=== PATIENT | female | born 1935 | race Caucasian/White ===

== ENCOUNTER 2016-07-09 10:30 | Outpatient (CLI) | payer MEDICARE, OTHER | END 2016-07-09 10:31 | disposition home or self-care (01) | DX: E87.1 Hypo-osmolality and hyponatremia (principal); E78.5 Hyperlipidemia, unspecified; I10 Essential (primary) hypertension ==

== ENCOUNTER 2017-03-12 12:34 | Outpatient (CLI) | payer MEDICARE, OTHER ==
[2017-03-12 18:16] LABS: ALBUMIN/GLOBULIN RATIO 1.6 (1.0-2.2); BILIRUBIN,TOTAL 0.6 mg/dL (0.2-1.0); CALCIUM 9.7 mg/dL (8.5-10.3); CREATININE 0.6 mg/dL (0.4-1.0); POTASSIUM 4.6 mmol/L (3.5-5.0)
== END 2017-03-12 12:35 | disposition home or self-care (01) ==
LOC: LAB.F 12:34
PROVIDERS: ATTEND Internal Medicine Cardiovascular Disease
DX: E78.2 Mixed hyperlipidemia (principal); I25.10 Atherosclerotic heart disease of native coronary artery without angina pectoris; Z79.899 Other long term (current) drug therapy
CPT/HCPCS: 36415; 80053

== ENCOUNTER 2017-04-28 11:44 | Outpatient (CLI) | payer MEDICARE, OTHER ==
[2017-04-28 19:44] LABS: CHOL/HDL RATIO 1.6 (<4.4); CHOLESTEROL 176 mg/dL; HDL CHOLESTEROL 107 mg/dL; LDL/HDL RATIO 0.5 (<4.4); TRIGLYCERIDES 65 mg/dL; VLDL CHOLESTEROL 13 mg/dL
== END 2017-04-28 11:45 | disposition home or self-care (01) ==
LOC: LAB.F 11:44
PROVIDERS: ATTEND Internal Medicine Cardiovascular Disease
DX: E78.2 Mixed hyperlipidemia (principal); I25.10 Atherosclerotic heart disease of native coronary artery without angina pectoris; Z79.899 Other long term (current) drug therapy
CPT/HCPCS: 36415; 80061

== ENCOUNTER 2018-01-24 10:43 | Outpatient (CLI) | payer MEDICARE, OTHER ==
--- NOTE | 2018-01-26 09:09 | Mammography Report ---
Reason: SCREENING MAMMO Procedure Date: 01/24/2018 Accession Number: [id number] / [id number] Procedure: MGS - Screening Mammo Dig Bilat CPT Code: FULL RESULT: EXAM: Screening Mammo Dig Bilat DATE: 01/24/2018 12:00 AM CLINICAL HISTORY: Screening mammogram TECHNIQUE: Bilateral CC and MLO views were obtained. COMPARISON: Mammogram 05/07/2014 FINDINGS: The breast parenchyma is heterogeneously dense which may limit the sensitivity of mammography. There are benign-appearing calcifications and lymph nodes. No suspicious masses, clustered microcalcifications, or regions of architectural distortion are identified. IMPRESSION: Benign findings RECOMMENDATION: Routine annual screening unless otherwise clinically indicated. BIRADS CATEGORY 2: Benign findings STANDARD QUALIFYING STATEMENTS: 1. This examination was reviewed with the aid of Computer-Aided Detection (CAD). 2. A negative or benign imaging report should not delay biopsy if clinically suspicious findings are present. Consider surgical consultation if warrented. More than 5% of cancers are not identified by imaging. 3. Dense breasts may obscure an underlying neoplasm.
== END 2018-01-24 10:44 | disposition home or self-care (01) ==
LOC: DI.S 10:43
PROVIDERS: ATTEND Internal Medicine
DX: Z12.31 Encounter for screening mammogram for malignant neoplasm of breast (principal)
CPT/HCPCS: 77067

== ENCOUNTER 2018-11-09 12:20 | Outpatient (CLI) | payer MEDICARE, OTHER ==
--- NOTE | 2018-11-09 13:15 | XRAY Report ---
Reason: FOOT PAIN/ANKLE PAIN Procedure Date: 11/09/2018 Accession Number: [id number] / [id number] Procedure: XR - Foot 3 View LT CPT Code: FULL RESULT: EXAM: LEFT FOOT RADIOGRAPHY EXAM DATE: 11/09/2018 12:37 PM. CLINICAL HISTORY: Foot pain/ankle pain. COMPARISON: XR FOOT COMPLETE MIN 3 VIEWS 12/20/2007 4:51 PM. TECHNIQUE: 3 views. FINDINGS: Bones: Hallux valgus configuration, intermetatarsal angle 20 degrees. The bones are qualitatively osteopenic; this limits evaluation for underlying fractures or masses. No fracture is seen. Joints: No other subluxation. Soft Tissues: Normal. No soft tissue swelling. IMPRESSION: Hallux valgus. RADIA
== END 2018-11-09 12:21 | disposition home or self-care (01) ==
LOC: DI 12:20
PROVIDERS: ATTEND Internal Medicine
DX: M20.12 Hallux valgus (acquired), left foot (principal); M25.572 Pain in left ankle and joints of left foot

== ENCOUNTER 2020-12-03 10:52 | Outpatient (CLI) | payer MEDICARE, OTHER ==
--- NOTE | 2020-12-04 15:13 | Mammography Report ---
BILATERAL DIGITAL SCREENING MAMMOGRAM 3D/2D: 12/03/2020 CLINICAL: Routine screening. Comparison is made to exams dated: 01/24/2018 mammogram, 05/07/2014 mammogram, and 05/03/2013 mammogr am - [facility]. There are scattered fibroglandular elements in both breasts. There are benign calcifications in both breasts. No significant masses, calcifications, or other findings are seen in either breast. There has been no significant interval change. IMPRESSION: BENIGN There is no mammographic evidence of malignancy. A 1 year screening mammogram is recommended. This exam was interpreted at Station ID: [id number]. NOTE: For mammograms, a report in lay terms will be sent to the patient. Approximately 15% of breast malignancies will not be visualized mammographically. In the management of a palpable breast mass, a negative mammogram must not discourage biopsy of a clinically suspicious lesion. Electronically Signed By: Gilles Pires M.D. ddp/penrad:12/03/2020 11:37:53 ACR BI-RADS Category 2: Benign Finding(s) 3342F PARENCHYMAL PATTERN: (A) - The breast(s) demonstrate(s) scattered fibroglandular densities. BI-RADS CATEGORY: (2) - 2 RECOMMENDATION: (ANNUAL) - Recommend routine annual screening mammography. [id number] 1 year screening LATERALITY: (B)
== END 2020-12-03 10:53 | disposition home or self-care (01) ==
LOC: DI.S 10:52
PROVIDERS: ATTEND Internal Medicine
DX: Z12.31 Encounter for screening mammogram for malignant neoplasm of breast (principal)

== ENCOUNTER 2020-12-10 11:32 | Outpatient (CLI) | payer MEDICARE, OTHER ==
[2020-12-10 14:39] LABS: BASOPHILS # (AUTO) 0.1 10^3/uL (0.0-0.1); BASOPHILS % (AUTO) 0.9 %; EOSINOPHILS # (AUTO) 0.4 10^3/uL (0.0-0.7); EOSINOPHILS % (AUTO) 6.3 %; HCT - HEMATOCRIT 37.2 % (37.0-47.0); HGB - HEMOGLOBIN 12.4 g/dL (12.0-16.0); LYMPHOCYTES # (AUTO) 2.7 10^3/uL (1.5-3.5); LYMPHOCYTES % (AUTO) 39.2 %; MEAN CORPUSCULAR HEMOGLOBIN 34.2 pg (27.0-31.0); MEAN CORPUSCULAR HGB CONC 33.3 g/dL (32.0-36.0); MEAN CORPUSCULAR VOLUME 102.5 fL (81.0-99.0); MEAN PLATELET VOLUME 10.6 fL (7.9-10.8); MONOCYTES # (AUTO) 0.9 10^3/uL (0.0-1.0); MONOCYTES % (AUTO) 12.7 %; NEUTROPHILS # (AUTO) 2.8 10^3/uL (1.5-6.6); NEUTROPHILS % (AUTO) 40.5 %; PLT - PLATELET COUNT 288 10^3/uL (130-450); RED BLOOD COUNT 3.63 10^6/uL (4.20-5.40); RED CELL DISTRIBUTION WIDTH 12.6 % (12.0-15.0); WHITE BLOOD COUNT 6.8 x10^3/uL (4.8-10.8)
[2020-12-10 15:08] LABS: ALBUMIN 4.4 g/dL (3.2-5.5); ALBUMIN/GLOBULIN RATIO 1.3 (1.0-2.2); ALKALINE PHOSPHATASE 59 IU/L (42-121); ALT ALANINE AMINOTRANSFERASE 15 IU/L (10-60); AST ASPARTATE AMINOTRANSFERASE 21 IU/L (10-42); BILIRUBIN,TOTAL 0.7 mg/dL (0.2-1.0); BUN - BLOOD UREA NITROGEN 19 mg/dL (6-20); CARBON DIOXIDE - CO2 27 mmol/L (21-32); CHLORIDE 93 mmol/L (101-111); CHOL/HDL RATIO 1.8 (<4.4); CHOLESTEROL 191 mg/dL; CK- CREATINE KINASE 58 IU/L (22-269); CREATININE 0.7 mg/dL (0.4-1.0); GFR - MDRD 80 (>89); GLUCOSE 106 mg/dL (70-100); HDL CHOLESTEROL 105 mg/dL; LDL CHOLESTEROL,CALCULATED 74 mg/dL; LDL/HDL RATIO 0.7 (<4.4); POTASSIUM 4.7 mmol/L (3.5-5.0); SODIUM 130 mmol/L (135-145); TOTAL PROTEIN 7.7 g/dL (6.7-8.2); TRIGLYCERIDES 59 mg/dL; VLDL CHOLESTEROL 12 mg/dL
== END 2020-12-10 11:33 | disposition home or self-care (01) ==
LOC: LAB.S 11:32
PROVIDERS: ATTEND Internal Medicine
DX: R52 Pain, unspecified (principal); Z13.6 Encounter for screening for cardiovascular disorders; Z79.899 Other long term (current) drug therapy; M54.30 Sciatica, unspecified side; I10 Essential (primary) hypertension; I25.10 Atherosclerotic heart disease of native coronary artery without angina pectoris
CPT/HCPCS: 36415; 80053; 80061; 82550; 83721; 84443; 85025

== ENCOUNTER 2021-02-20 12:51 | Outpatient (CLI) | payer MEDICARE, OTHER ==
[2021-02-20 13:27] LABS: CREATININE 0.7 mg/dL (0.4-1.0)
[2021-02-20] MEDS ORDERED: GADOBUTROL 7.5 MMOL/7.5 ML VIAL ONE (14:22)
--- NOTE | 2021-02-20 16:41 | MRI Report ---
PROCEDURE: Lumbar Spine W/WO INDICATIONS: RIGHT SCIATICA CONTRAST: IV CONTRAST: Gadavist ml: 5.8 TECHNIQUE: Noncontrast sagittal T1 spin echo and T2 fast spin echo, sagittal STIR, axial T1 and T2 fast spin ech o through the lumbar spine. In cases with scoliosis, additional coronal T2 fast spin echo may be per formed. After the administration of contrast, sagittal and axial T1 spin echo with fat saturation th rough the lumbar spine. COMPARISON: None. FINDINGS: Image quality: Excellent. Alignment and curvature: There is normal bony alignment. There is approximately 20 degrees of convex right lumbar spine scoliosis. Bones: Surgical changes compatible with L3-S1 PSIF. Reactive endplate changes noted adjacent to the T12-L1, L1-L2, L2-L3 and L5-S1 discs. No acute vertebral body compression fractures. No suspicious m arrow enhancement. Spinal cord: Conus medullaris terminates at the L1-2 disc level. Visualized spinal cord demonstrate s normal signal, without suspicious enhancement. Paraspinous soft tissues: No paravertebral masses or abnormal enhancement. T11-T12: Loss of disc signal and height. Mild, diffuse disc bulge. Moderate bilateral facet hypertrop hy. Mphi-bk-hswisyem narrowing of the central canal. Severe right and mild left neural foraminal narr owing with compression of the exiting right T11 nerve root. T12-L1: Loss of disc signal. Moderate, diffuse disc bulge. Central/left central disc protrusion supe rimposed on diffuse disc bulge. Mild bilateral facet hypertrophy. Mild narrowing of the central canal . Mild bilateral neural foraminal narrowing. No neural compression. L1-L2: Loss of disc signal and height. Moderate, diffuse disc bulge. Tbeb-gb-axtyectr bilateral fa cet hypertrophy. Mild narrowing of the central canal. Moderate bilateral neural foraminal narrowing. No neural compression. L2-L3: Loss of disc signal and height. Mild, diffuse disc bulge. Moderate bilateral facet hypertro phy. Mild to moderate narrowing of the central canal. Mild right and moderate to severe left neural f oraminal narrowing. No neural compression. L3-L4: Status post fusion. Mild bilateral facet hypertrophy. No central stenosis. No neural foramin al narrowing. No neural compression. L4-L5: Status post fusion. Mild bilateral facet hypertrophy. No central stenosis. No neural foramin al narrowing. No neural compression L5-S1: Status post fusion. Moderate, diffuse disc bulge. Mild bilateral facet hypertrophy. No centr al stenosis. Moderate to severe right and mild left neural foraminal narrowing with possible slight c ompression of the exiting right L5 nerve root which is not well-seen due to susceptibility artifact r elated to orthopedic hardware. IMPRESSION: 1. L3-S1 PSIF. 2. Multilevel degenerative disease. 3. Multilevel facet arthropathy. 4. No severe central canal narrowing. 5. Severe right T11-T12 neural foraminal narrowing with compression of the exiting right T11 nerve ro ot. Moderate to severe right L5-S1 neural foraminal narrowing with possible slight compression of the exiting right L5 nerve root. 6. No suspicious postcontrast enhancement. Reviewed by: Kath Valadez MD, PhD on 02/20/2021 4:40 PM PDT Approved by: Kath Valadez MD, PhD on 02/20/2021 4:40 PM PDT Station ID: [id number]
[2021-02-20] MEDS ORDERED: GADOBUTROL 7.5 MMOL/7.5 ML VIAL IVP ONE (16:52)
== END 2021-02-20 12:52 | disposition home or self-care (01) ==
LOC: LAB 12:51
PROVIDERS: ATTEND Internal Medicine
DX: Z79.899 Other long term (current) drug therapy (principal); M54.31 Sciatica, right side; Z98.1 Arthrodesis status; M51.25 Other intervertebral disc displacement, thoracolumbar region; M47.814 Spondylosis without myelopathy or radiculopathy, thoracic region; M47.815 Spondylosis without myelopathy or radiculopathy, thoracolumbar region; M51.35 Other intervertebral disc degeneration, thoracolumbar region; M48.05 Spinal stenosis, thoracolumbar region; M47.816 Spondylosis without myelopathy or radiculopathy, lumbar region; M51.36 Other intervertebral disc degeneration, lumbar region; M48.061 Spinal stenosis, lumbar region without neurogenic claudication; M47.817 Spondylosis without myelopathy or radiculopathy, lumbosacral region; M48.07 Spinal stenosis, lumbosacral region
CPT/HCPCS: 36415; 72158; 82565; A9585

== ENCOUNTER 2021-05-05 08:00 | Outpatient (CLI) | payer MEDICARE, OTHER | END 2021-05-05 23:59 | LOC: LAB.S 08:00 | PROVIDERS: ATTEND Emergency Medicine | DX: L03.011 Cellulitis of right finger (principal) | CPT/HCPCS: 87070; 87077; 87181; 87205 ==

== ENCOUNTER 2021-07-02 09:37 | Emergency (ER) | payer MEDICARE, OTHER ==
[2021-07-02] MEDS ORDERED: DEXAMETHASONE 10 MG/ML VIAL IVP STA (10:22)
[2021-07-02] MEDS ORDERED: KETOROLAC 30 MG/ML VIAL IVP STA (10:22)
[2021-07-02] MEDS ORDERED: SODIUM CHLORIDE 0.9% 1,000 ML IV STA (10:22)
--- NOTE | 2021-07-02 10:28 | ED Physician Documentation ---
PD HPI BACK PAIN - Stated complaint Stated Complaint: BACK PX - Chief complaint Chief Complaint: Back Pain - History obtained from History obtained from: Patient, Family - History of Present Illness Timing - onset: How many days ago (12) Timing - duration: Days (12) Timing - details: Gradual onset, Still present Location: Lower, Right Quality: Pain, Sharp, Similar to prior episodes Associated symptoms: Incontinent of urine (similar to prior). No: Fever, Weakness, Numbness Improves with: Rest, Position, Meds Worsened by: Movement Contributing factors: Other (recent lumbar fusion) Similar symptoms before: Diagnosis (sciatica from loosened hardware) Recently seen: Surgery - Additional information Additional information: 85-year-old female who had a lumbar fusion done 10 years ago has had a repeat repair of her fusion [address] Ordonez. Following this procedure the patient has persistence of pain radiating down her right leg. In addition she is noted to have a low hemoglobin and hematocrit following her surgery and this was confirmed again yesterday. Her repeat blood work done is concerning for a potassium elevated at 6.6. These labs were drawn 2 days ago and the patient had results yesterday evening. Dr. Ordonez has requested imaging for evaluation of her hardware. Review of Systems Constitutional: denies: Fever Eyes: denies: Decreased vision Ears: denies: Ear pain Nose: denies: Congestion Throat: denies: Sore throat Cardiac: denies: Chest pain / pressure Respiratory: denies: Dyspnea, Cough GI: denies: Abdominal Pain, Nausea, Vomiting, Constipation, Diarrhea : denies: Dysuria, Frequency Skin: denies: Rash Musculoskeletal: reports: Back pain, Extremity pain. denies: Neck pain Neurologic: denies: Generalized weakness, Focal weakness, Numbness PD PAST MEDICAL HISTORY - Past Medical History Cardiovascular: Hypertension, High cholesterol - Past Surgical History Past Surgical History: Yes - Present Medications Home Medications: Ambulatory Orders Medication Instructions Recorded Confirmed Atorvastatin Calcium [Lipitor] 20 mg PO 01/25/13 01/25/13 HYDROcod/ACETAM 5/325 [Vicodin 1 - 2 ea PO Q6H PRN 01/25/13 01/25/13 5/325] Lisinopril 10 mg PO 01/25/13 01/25/13 atenoloL [Tenormin] 25 mg PO DAILY 01/25/13 01/25/13 Clotrimazole/Betamethasone Dip 1 applic TP BID #15 cream..g. 01/26/13 [Lotrisone Cream] Hydrocortisone Supp [Anusol-Hc] 25 mg WA BID #10 supp 01/26/13 - Allergies Allergies/Adverse Reactions: Allergies Allergy/AdvReac Type Severity Reaction Status Date / Time No Known Drug Allergies Allergy Verified 07/02/21 09:54 - Social History Does the pt smoke?: No Smoking Status: Never smoker Does the pt drink ETOH?: No Does the pt have substance abuse?: No - Immunizations Immunizations are current?: Yes - POLST Patient has POLST: No PD ED PE NORMAL - Vitals Vital signs reviewed: Yes (hypertensive with wide pulse pressure. ) - General General: Alert and oriented X 3, No acute distress, Well developed/nourished, Other - HEENT HEENT: Atraumatic, PERRL, EOMI - Neck Neck: Supple, no meningeal sign, No bony TTP - Cardiac Cardiac: RRR, No murmur - Respiratory Respiratory: No respiratory distress, Clear bilaterally, Other (wearing a TLSO brace) - Abdomen Abdomen: Soft, Non tender - Back Back: No CVA TTP, Other (The area of surgery is under the TLSO brace and is not examined. ) - Derm Derm: Normal color, Warm and dry, No rash - Extremities Extremities: No deformity, No edema - Neuro Neuro: Alert and oriented X 3, police officer 2-12 intact, No motor deficit, No sensory deficit, Normal speech Eye Opening: Spontaneous Motor: Obeys Commands Verbal: Oriented GCS Score: 15 - Psych Psych: Normal mood Results - Vitals Vitals: Vital Signs - 24 hr 07/02/21 07/02/21 07/02/21 09:45 11:39 13:10 Temperature 36.1 C L 36.1 C L Heart Rate 87 67 68 Respiratory 16 13 17 Rate Blood Pressure 131/47 H 138/64 H 135/65 H O2 Saturation 96 99 07/02/21 07/02/21 07/02/21 13:15 13:25 14:00 Temperature 36.1 C L 36.2 C L Heart Rate 66 64 66 Respiratory 14 13 16 Rate Blood Pressure 136/66 H 145/64 H 132/67 H O2 Saturation 100 02/16/22 02/16/22 15:22 15:30 Temperature 36.2 C L Heart Rate 64 67 Respiratory 14 15 Rate Blood Pressure 140/64 H 141/60 H O2 Saturation 97 Oxygen O2 Source Room air - Labs Labs: Laboratory Tests 07/02/21 07/02/21 07/02/21 10:30 10:30 10:43 WBC 8.1 RBC 2.18 L Hgb 7.3 L Hct 22.8 L MCV 104.6 H MCH 33.5 H MCHC 32.0 RDW 12.7 Plt Count 392 MPV 8.5 Neut # (Auto) 4.9 Lymph # (Auto) 1.9 [place] # (Auto) 0.9 Eos # (Auto) 0.3 Baso # (Auto) 0.1 Absolute Nucleated RBC 0.00 Nucleated RBC % 0.0 Sodium 127 L Potassium 5.2 H Chloride 92 L Carbon Dioxide 27 Anion Gap 8.0 BUN 33 H Creatinine 1.0 Estimated GFR (MDRD) 53 L Glucose 110 H Calcium 9.1 Total Bilirubin 0.6 AST 19 ALT 14 Alkaline Phosphatase 79 Total Protein 6.8 Albumin 3.4 Globulin 3.4 Albumin/Globulin Ratio 1.0 Lipase 54 H Urine Color Urine Clarity Urine pH Ur Specific [place] Urine Protein Urine Glucose (UA) Urine Ketones Urine Occult Blood Urine Nitrite Urine Bilirubin Urine Urobilinogen Ur Leukocyte Esterase Ur Microscopic Review Urine Culture Comments Blood Type A POSITIVE Antibody Screen NEGATIVE Crossmatch IS Only See Detail 07/02/21 12:11 WBC RBC Hgb Hct MCV MCH MCHC RDW Plt Count MPV Neut # (Auto) Lymph # (Auto) [place] # (Auto) Eos # (Auto) Baso # (Auto) Absolute Nucleated RBC Nucleated RBC % Sodium Potassium Chloride Carbon Dioxide Anion Gap BUN Creatinine Estimated GFR (MDRD) Glucose Calcium Total Bilirubin AST ALT Alkaline Phosphatase Total Protein Albumin Globulin Albumin/Globulin Ratio Lipase Urine Color YELLOW Urine Clarity CLEAR Urine pH 6.0 Ur Specific [place] 1.015 Urine Protein NEGATIVE Urine Glucose (UA) NEGATIVE Urine Ketones NEGATIVE Urine Occult Blood NEGATIVE Urine Nitrite NEGATIVE Urine Bilirubin NEGATIVE Urine Urobilinogen 0.2 (NORMAL) Ur Leukocyte Esterase NEGATIVE Ur Microscopic Review NOT INDICATED Urine Culture Comments NOT INDICATED Blood Type Antibody Screen Crossmatch IS Only - Rads (name of study) CT Radiology: Prelim report reviewed (Impression: Recent postsurgical changes related to revision L3 S1 posterior fixation and bilateral sacroiliac arthrodesis. No acute complicating hardware features identified. Suspect clinically relevant spinal canal and neural foraminal stenosis at L5-S1 also at L2-L3.), EMP read indepedently, See rad report Procedures - IVC sono (time) 1025 Bedside IVC sono: IVC measures (cm) (1.14), Dehydration (est 1+ liter deficit) PD MEDICAL DECISION MAKING - ED course Complexity details: reviewed old records, reviewed results, re-evaluated patient, considered differential, d/w patient, d/w family ED course: 85-year-old female who has had a revision of her hardware in her back has persistent pain and she is found to be significantly anemic in the critical range of hemoglobin of 7.3 and hematocrit of 22.4. She is found to be dehydrated as well. She is administered dexamethasone Toradol saline and a unit of blood. She has marked improvement in all of her symptoms. I contacted her surgeon on- call Dr. Ordonez and he reviewed her films that he had requested. He found no misplaced hardware and he will call the daughter in regards to the follow-up. He was happy to hear that we had given her some dexamethasone and some blood.He recommended institution of Lovenox in the patient's has had a prescription is E- scribed to her pharmacy already. The daughter had not instituted this medication yet as she was concerned about the anemia. She is given now some reserve with the unit of blood she has. We have recommended starting the Lovenox as the patient is not mobile. Departure - Departure Disposition: 01 Home, Self Care Clinical Impression: Sciatica Qualifiers: Laterality: right Qualified Code(s): M54.31 - Sciatica, right side Anemia Qualifiers: Anemia type: other cause Other causes of anemia: acute posthemorrhagic Qualified Code(s): D62 - Acute posthemorrhagic anemia Condition: Stable Instructions: ED Anemia Type Not Specified, ED Sciatica Follow-Up: Mike Stovall MD [Primary Care Provider] - NEO ORDONEZ MD [Physician No Access] - Comments: Sherri, today the pictures we took of your hardware look like everything is where it is supposed to be. We found you were dehydrated and anemic and we have transfused a unit of blood and given a liter of saline. This should help with stamina. We did give you a dose of decadron and this will continue to help improve the pain for another day. Follow up with Dr. Ordonez as planned and followup with Dr. Stovall regarding your potassium, blood pressure medication and anemia. Discharge Date/Time: 07/02/21 16:33
[2021-07-02 10:41] LABS: BASOPHILS # (AUTO) 0.1 10^3/uL (0.0-0.1); BASOPHILS % (AUTO) 0.6 %; EOSINOPHILS # (AUTO) 0.3 10^3/uL (0.0-0.7); EOSINOPHILS % (AUTO) 3.9 %; HCT - HEMATOCRIT 22.8 % (37.0-47.0); HGB - HEMOGLOBIN 7.3 g/dL (12.0-16.0); LYMPHOCYTES # (AUTO) 1.9 10^3/uL (1.5-3.5); LYMPHOCYTES % (AUTO) 23.7 %; MEAN CORPUSCULAR HEMOGLOBIN 33.5 pg (27.0-31.0); MEAN CORPUSCULAR VOLUME 104.6 fL (81.0-99.0); MEAN PLATELET VOLUME 8.5 fL (7.9-10.8); MONOCYTES # (AUTO) 0.9 10^3/uL (0.0-1.0); NEUTROPHILS # (AUTO) 4.9 10^3/uL (1.5-6.6); NEUTROPHILS % (AUTO) 60.2 %; PLT - PLATELET COUNT 392 10^3/uL (130-450); RED BLOOD COUNT 2.18 10^6/uL (4.20-5.40); RED CELL DISTRIBUTION WIDTH 12.7 % (12.0-15.0); WHITE BLOOD COUNT 8.1 x10^3/uL (4.8-10.8)
[2021-07-02 10:56] LABS: ALBUMIN 3.4 g/dL (3.2-5.5); BILIRUBIN,TOTAL 0.6 mg/dL (0.2-1.0); CALCIUM 9.1 mg/dL (8.5-10.3); POTASSIUM 5.2 mmol/L (3.5-5.0); TOTAL PROTEIN 6.8 g/dL (6.7-8.2)
--- NOTE | 2021-07-02 11:37 | CT Report ---
PROCEDURE: LUMBAR SPINE WO INDICATIONS: Hardware evaluation TECHNIQUE: Noncontrast 3 mm thick sections acquired from the T12 level to the sacrum. Sagittal and coronal refo rmats were constructed. For radiation dose reduction, the following was used: automated exposure co ntrol, adjustment of mA and/or kV according to patient size. COMPARISON: MRI lumbar spine 02/20/2021 FINDINGS: There are recent postsurgical changes with surgical cathy and fluid in the midline paraspinous soft tissues from T12 through S1. There is a posterior L3-S1 fixation construct with bilateral pedicle sc rews at L3, L4, L5, and S1 along with bilateral sacroiliac arthrodesis screws. There is a ghost track related to and removal of a right knee S1 pedicle screws. Interbody devices are present at L3-L4, L4 -L5, and L5-S1. There is no fracture of the hardware. The hardware appears to be in appropriate posit ion with no evidence of significant cortical breach. No abnormal lucency surrounding the hardware. Anterolisthesis of L5 on S1 measuring 9 mm is similar to 02/20/2021 examination. Dextrorotoscoliosis i n the lumbar spine is also similar. Wedging of the left L2 vertebral body at the concavity of the sco liosis is similar. Vertebral body heights otherwise maintained. Degenerative sclerosis at L1-L2, L2-L 3, and L5-S1. Wide decompression of the spinal canal at L3-L4, L4-L5, L5 and S1 by laminectomies. Pseudobulge at L5 -S1 related to the anterolisthesis likely causes some residual mass effect on the descending S1 nerve roots. Otherwise no evidence of significant spinal canal stenosis. Severe neural foraminal stenosis at L5-S1 with flattening of the exiting L5 nerve roots. There is also severe neural foraminal stenosi s on the left at L2-L3 and likely moderate stenosis on the left L1-L2. IMPRESSION: Recent post-surgical changes related to revision L3-S1 posterior fixation and bilateral sacroiliac ar throdesis. No acute complicating hardware features identified. Suspected clinically relevant spinal canal and neural foraminal stenosis at L5-S1 also at L2-L3. Reviewed by: Teodoro Grey MD on 07/02/2021 11:36 AM PST Approved by: Teodoro Grey MD on 07/02/2021 11:36 AM PST Station ID: [id number]
[2021-07-02 12:20] LABS: BILIRUBIN,URINE NEGATIVE (NEGATIVE); GLUCOSE, URINE (UA) NEGATIVE (NEGATIVE); KETONES,URINE (UA) NEGATIVE (NEGATIVE); LEUKOCYTE ESTERASE, URINE NEGATIVE (NEGATIVE); NITRITE,URINE NEGATIVE (NEGATIVE); OCCULT BLOOD,URINE NEGATIVE (NEGATIVE); PROTEIN,URINE NEGATIVE (NEGATIVE); UROBILINOGEN,URINE 0.2 (NORMAL) E.U./dL (NORMAL)
[2021-07-02 12:43] LABS: CLARITY,URINE CLEAR (CLEAR)
[2021-07-02 15:35] VITALS: BP 141/60
[2021-07-02] MEDS ORDERED: oxyCODONE 5 MG TABLET PO STA (15:53)
== END 2021-07-02 16:33 | disposition home or self-care (01) ==
LOC: ED 09:37
DX: M54.31 Sciatica, right side (principal); D62 Acute posthemorrhagic anemia; I10 Essential (primary) hypertension
CPT/HCPCS: 36415; 36430; 72131; 80053; 81003; 83690; 85025; 86850; 86900; 86901; 86920; 96374; 96375; 99284; 99285; A9270; P9016; 81001; 87086

== ENCOUNTER 2023-04-05 11:43 | Outpatient (CLI) | payer MEDICARE, OTHER ==
--- NOTE | 2023-04-05 13:32 | XRAY Report ---
PROCEDURE: Shoulder 3 View BILAT INDICATIONS: BILATERAL SHOULDER JOINT PAIN/WHEEZING TECHNIQUE: 2 views of the right, and 3 views of the left shoulder was obtained COMPARISON: None FINDINGS: Bones: Moderate osteopenia and bilateral glenohumeral joint space narrowing is severe on the right an d moderate left hip. Remodeling of the right humeral head with marginal osteophytes are present. Both lung apices are clear. Soft tissues: No suspicious soft tissue calcifications. 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
--- NOTE | 2023-04-05 18:44 | XRAY Report ---
PROCEDURE: Chest 2 View X-Ray INDICATIONS: WHEEZING TECHNIQUE: 2 views of the chest were obtained. COMPARISON: None. FINDINGS: Surgical changes and devices: Lumbar spine discectomy and fusion with instrumentation Lungs and pleura: No pleural effusions or pneumothorax. Lungs are clear. Mediastinum: Mediastinal contours appear normal. Heart size is normal. Atherosclerotic vascular daly cification noted in the aortic arch. Bones and chest wall: No suspicious bony lesions. Overlying soft tissues appear unremarkable. IMPRESSION: No acute cardio pulmonary findings Reviewed by: Goran Mcgovern MD on 04/05/2023 5:42 PM [place] Approved by: Goran Mcgovern MD on 04/05/2023 5:42 PM [place] Station ID: [id number]
== END 2023-04-05 11:44 | disposition home or self-care (01) ==
LOC: DI.S 11:43
PROVIDERS: ATTEND Registered Nurse
DX: R06.2 Wheezing (principal); M19.012 Primary osteoarthritis, left shoulder; M19.011 Primary osteoarthritis, right shoulder